=== PATIENT | male | born 1960 | race Caucasian/White ===

== ENCOUNTER 2017-02-07 06:16 | Emergency (ER) | payer BC ==
[2017-02-07] MEDS ORDERED: METHYLPREDNISOLONE PF 125MG/VIAL IVP ONE (06:23)
[2017-02-07] MEDS ORDERED: FAMOTIDINE IV 20 MG/2 ML VIAL IVP ONE (06:23)
[2017-02-07] MEDS ORDERED: DIPHENHYDRAMINE HCL IV 50 MG/ML VIAL IVP ONE (06:27)
--- NOTE | 2017-02-07 06:28 | Emergency Department Record ---
History of Present Illness - General Chief complaint: Allergic Reaction Stated complaint: ALLERGIC RXN Time Seen by Provider: 02/07/17 06:22 Source: Patient Mode of Arrival: Ambulatory Limitations: No limitations - History of Present Illness Initial Comments: 56 yo male presents to ED with a CC of allergic reaction this morning. Patient reports similar symptoms over the last 2 months that occur approximately once a month. Patient is unaware of any precipitating factors, but symptoms have usually resolved following steroid injection. In addition to redness, the patient reports swelling to the hands and feet bilaterally but today his symptoms are associated with shortness of breath. Patient denies health problems other than DM that he takes Glucophage for. MD Complaint: Allergic reaction Onset/Timin -: Days(s) Exposure: Unknown Symptoms: Itching, Difficulty breathing Severity: Moderate Previous Allergy History: Other (previous visit to [facility]) - Related Data Home Medications Medication Instructions Recorded Confirmed Last Taken Levothyroxine Sodium [Synthroid] 1 tab PO DAILY 02/07/17 02/07/17 Unknown Lisinopril 1 tab PO DAILY 02/07/17 02/07/17 Unknown Metformin ER HCl [Glucophage Xr] 500 mg PO TID 02/07/17 02/07/17 Unknown Pravastatin Sodium [Pravachol] 1 tab PO DAILY 02/07/17 02/07/17 Unknown Allergies Allergy/AdvReac Type Severity Reaction Status Date / Time No Known Drug Allergies Allergy Verified 02/07/17 06:38 Review of Systems Constitutional: Denies: Chills, Fever, Malaise, Night sweats Eyes: Reports: Other ("eye puffyness"). Denies: Eye discharge, Eye pain ENT: Denies: Congestion, Ear pain, Epistaxis Respiratory: Reports: Dyspnea. Denies: Cough Cardiovascular: Denies: Chest pain, Dyspnea on exertion Endocrine: Denies: Fatigue, Heat or cold intolerance Gastrointestinal: Denies: Abdominal pain, Nausea, Vomiting Genitourinary: Denies: Incontinence, Retention Musculoskeletal: Denies: Arthralgia, Back pain Skin: Denies: Bruising, Change in color Neurological: Denies: Abnormal gait, Confusion, Headache, Seizure Psychiatric: Denies: Anxiety Hematological/Lymphatic: Denies: Anemia, Blood Clots Physical Exam - General General Appearance: Alert, Oriented x3, Cooperative, Mild distress Limitations: No limitations - Head Head exam: Atraumatic, Normocephalic, Normal inspection Head exam detail: negative: Abrasion, Contusion, Gonzalez's sign, General tenderness, Hematoma, Laceration - Eye Eye exam: Periorbital swelling. negative: Conjunctival injection, Periorbital tenderness, Scleral icterus - ENT Ear exam: negative: Auricular hematoma, Auricular trauma Nasal Exam: negative: Active bleeding, Discharge, Dried blood, Foreign body Mouth exam: negative: Drooling, Laceration, Muffled voice, Tongue elevation - Neck Neck exam: Normal inspection. negative: Meningismus, Tenderness - Respiratory Respiratory exam: Normal lung sounds bilaterally. negative: Rales, Respiratory distress, Rhonchi, Stridor - Cardiovascular Cardiovascular Exam: Regular rate, Normal rhythm, Normal heart sounds - GI/Abdominal GI/Abdominal exam: Soft. negative: Rebound, Rigid, Tenderness - Rectal Rectal exam: Deferred - exam: Deferred - Extremities Extremities exam: Pedal edema, Other (Very mild STS to the hands and feet bilaterally). negative: Calf tenderness, Tenderness - Back Back exam: Denies: CVA tenderness (R), CVA tenderness (L) - Neurological Neurological exam: Alert, Normal gait, Oriented X3 - Psychiatric Psychiatric exam: Normal affect, Normal mood - Skin Skin exam: Erythema. negative: Abrasion Type of lesion: Rash. negative: abrasion Course - Reevaluation(s) Reevaluation #1: 02/07/17 06:44 IV medications for urticaria initiated, case was discussed with oncoming provider and will assume care and disposition a this time. Disposition Disposition: Discharge Clinical Impression: Allergic reaction Qualifiers: Encounter type: initial encounter Qualified Code(s): T78.40XA - Allergy, unspecified, initial encounter Disposition: Home, Self-Care Condition: (2) Stable Instructions: Urticaria (ED) Additional Instructions: Return to ED if your symptoms worsen or if you have any concerns. Prednisone as directed. Follow-up with your family doctor in 3-5 days as directed. Forms: Patient Portal Access Time of Disposition: 06:30
== END 2017-02-07 07:46 | disposition home or self-care (01) ==
LOC: ER 06:16
DX: T78.40XA Allergy, unspecified, initial encounter (principal); L50.0 Allergic urticaria; R06.00 Dyspnea, unspecified; R20.0 Anesthesia of skin; R22.0 Localized swelling, mass and lump, head; L29.9 Pruritus, unspecified; E11.9 Type 2 diabetes mellitus without complications; Z79.84 Long term (current) use of oral hypoglycemic drugs
CPT/HCPCS: 99284 ×2; 96374; 96375; J3490; J1200; J2930